=== PATIENT | female | born 1980 | race Caucasian/White ===

== ENCOUNTER → 2017-12-07 | Outpatient (CLI) | payer MEDICAID ==
--- NOTE | 2017-12-08 11:08 | MM ---
Reason for exam: screening (asymptomatic). Baseline mammogram. History: Took hormonal contraceptives beginning at age 15. Physical Findings: Nurse Summary: 1cm nodule in the right breast at 9 o'clock (nurse jose). MG 3D Screening Mammo W/Cad Bilateral CC and MLO view(s) were taken. The breast tissue is heterogeneously dense. This may lower the sensitivity of mammography. No significant new findings when compared with previous films. These results were verbally communicated with the patient and result sheet given to the patient on 12/07/17. ASSESSMENT: Incomplete: need additional imaging evaluation, BI-RAD 0 RECOMMENDATION: Ultrasound of the right breast. [facility] will attempt to contact patient to return for ultrasound.
--- NOTE | 2017-12-08 11:09 | USB ---
Reason for exam: additional evaluation requested from abnormal screening. History: Took hormonal contraceptives beginning at age 15. Physical Findings: Breast exam preformed at baseline screening. US Breast Workup Limited RT Right breast ultrasound demonstrates no cystic or solid lesion seen. These results were verbally communicated with the patient and result sheet given to the patient on 12/07/17. ASSESSMENT: Probably benign, BI-RAD 3 RECOMMENDATION: Follow-up diagnostic mammogram of the right breast in 6 months. Manage patient on a clinical basis.
== END | disposition home or self-care (01) ==
LOC: RADMAMWWP 10:51
PROVIDERS: ATTEND Obstetrics & Gynecology
DX: Z12.31 Encounter for screening mammogram for malignant neoplasm of breast (principal); R92.8 Other abnormal and inconclusive findings on diagnostic imaging of breast
CPT/HCPCS: 77063; 77067

== ENCOUNTER 2019-06-25 18:45 | Emergency (ER) | payer MEDICAID ==
[2019-06-25 18:52] VITALS: BP 135/78; PULSE 104; RESP 18; TEMP 97.7
[2019-06-25] MEDS ORDERED: methylPREDNISolone SOD SUCCI 125 MG/2 ML VIAL IV STA (19:09)
[2019-06-25] MEDS ORDERED: diphenhydrAMINE 50 MG/ML 1 ML VIAL IVP STA (19:09)
[2019-06-25] MEDS ORDERED: SODIUM CHLORIDE 0.9% 1,000 ML IV STA (19:09)
[2019-06-25] MEDS ORDERED: FAMOTIDINE 20 MG/2 ML VIAL IV STA (19:09)
[2019-06-25] MEDS ORDERED: SODIUM CHLORIDE 0.9% 500 ML 500 ML IV STA (19:09)
--- NOTE | 2019-06-25 19:22 | ED ---
Allergic Reaction HPI - General Chief complaint: Allergic Reaction Stated complaint: allergic reaction Time Seen by Provider: 06/25/19 19:04 Source: patient, RN notes reviewed Mode of arrival: ambulatory Limitations: no limitations - History of Present Illness Initial Comments: This is a 39-year-old female with a benign history who states she was stung by an insect of some sort prior to arrival she was stung in the posterior right shoulder she now complains of chest tightness and hives everywhere. She is complaining of pruritus. No trouble swallowing no wheezing no overt difficulty breathing over she does again complain of the chest tightness. No other complaints or modifying factors MD Complaint: allergic reaction, hives - Related Data Previous Rx's Medication Instructions Recorded EPINEPHrine [Epipen 2-Birght] 0.3 mg IM ONCE PRN #1 pack 06/25/19 Famotidine [Pepcid] 20 mg PO BID #10 tablet 06/25/19 methylPREDNISolone Dose Pack 4 mg PO DIRECTED #21 package 06/25/19 [Medrol Dose Pack] Allergies Allergy/AdvReac Type Severity Reaction Status Date / Time No Known Allergies Allergy Verified 06/25/19 20:05 Review of Systems ROS Statement: Those systems with pertinent positive or pertinent negative responses have been documented in the HPI. ROS Other: All systems not noted in ROS Statement are negative. Past Medical History Past Medical History: No Reported History History of Any Multi-Drug Resistant Organisms: None Reported Additional Past Surgical History / Comment(s): WISDOM TEETH EXTRACTION Past Psychological History: No Psychological Hx Reported Smoking Status: Never smoker Past Alcohol Use History: Occasional Past Drug Use History: None Reported General Exam - General Exam Comments Initial Comments: This is a well-developed well-nourished awake alert oriented 3 female Limitations: no limitations General appearance: alert, anxious, in distress Head exam: Present: atraumatic, normocephalic, normal inspection Eye exam: Present: normal appearance, PERRL, EOMI. Absent: scleral icterus, conjunctival injection, periorbital swelling ENT exam: Present: normal exam, mucous membranes moist Neck exam: Present: normal inspection. Absent: tenderness, meningismus, lymphadenopathy Respiratory exam: Present: normal lung sounds bilaterally. Absent: respiratory distress, wheezes, rales, rhonchi, stridor Cardiovascular Exam: Present: normal rhythm, tachycardia, normal heart sounds. Absent: systolic murmur, diastolic murmur, rubs, gallop, clicks GI/Abdominal exam: Present: soft, normal bowel sounds. Absent: distended, tenderness, guarding, rebound, rigid Extremities exam: Present: normal inspection, full ROM, normal capillary refill. Absent: tenderness, pedal edema, joint swelling, calf tenderness Neurological exam: Present: alert, oriented X3, CN II-XII intact Psychiatric exam: Present: normal affect, normal mood Skin exam: Present: warm, dry, intact, other (Patient does demonstrate evidence of hives and urticaria on the integument of the extremities and trunk. The most part the face is spared examination of the bite/sting site on the right posterior shoulder reveals no evidence of any open wound or foreign body.). Absent: normal color, rash Course Vital Signs 06/25/19 18:49 Temperature 97.7 F Pulse Rate 104 H Respiratory 18 Rate Blood Pressure 135/78 O2 Sat by Pulse 99 Oximetry - Reevaluation(s) Reevaluation #1: 06/25/19 20:30 Reevaluation the patient she is feeling improved the itching is disappeared her hives are improving. Medical Decision Making - Medical Decision Making At this time the patient is deemed to be in satisfactory condition for discharge. She'll be discharged with appropriate medication also she will be given a prescription for an EpiPen. She was cautioned about heat exposure and exacerbation of her condition. Disposition Clinical Impression: Allergic reaction to insect sting, Allergic reaction Disposition: HOME SELF-CARE Condition: Good Instructions (If sedation given, give patient instructions): Urticaria (ED), General Allergic Reaction (ED) Additional Instructions: Cold compresses, avoid heat, [id number] Benadryl every 6 hours 25 mg when necessary. Prescriptions have been sent to [facility] at [facility] Prescriptions: EPINEPHrine [Epipen 2-Bright] 0.3 mg IM ONCE PRN #1 pack PRN Reason: Anaphylaxis methylPREDNISolone Dose Pack [Medrol Dose Pack] 4 mg PO DIRECTED #21 package Famotidine [Pepcid] 20 mg PO BID #10 tablet Is patient prescribed a controlled substance at d/c from ED?: No Referrals: None,Stated [Primary Care Provider] - 1-2 days
== END 2019-06-25 20:55 | disposition home or self-care (01) ==
LOC: EC 18:45
DX: T63.481A Toxic effect of venom of other arthropod, accidental (unintentional), initial encounter (principal); R00.0 Tachycardia, unspecified
CPT/HCPCS: 99284; 96374; 96375 ×2; 96361 ×2; J1200; J2930

== ENCOUNTER → 2022-01-01 | Outpatient (CLI) | payer MEDICAID ==
--- NOTE | 2022-01-04 11:08 | MM ---
Reason for exam: screening (asymptomatic). Last mammogram was performed 4 years and 1 month ago. History: Took hormonal contraceptives beginning at age 15. Physical Findings: A clinical breast exam by your physician is recommended on an annual basis and results should be correlated with mammographic findings. MG 3D Screening Mammo W/Cad Bilateral CC, MLO, and XCCL view(s) were taken. Prior study comparison: December 07, 2017, bilateral MG 3d screening mammo w/cad. There are scattered fibroglandular densities. Asymmetric breast tissue in the right breast is stable. No significant changes when compared with prior studies. ASSESSMENT: Benign, BI-RAD 2 RECOMMENDATION: Routine screening mammogram of both breasts in 1 year.
== END | disposition home or self-care (01) ==
LOC: RADMAMWWP 08:03
PROVIDERS: ATTEND Obstetrics & Gynecology
DX: Z12.31 Encounter for screening mammogram for malignant neoplasm of breast (principal)
CPT/HCPCS: 77063; 77067

== ENCOUNTER → 2023-02-23 | Outpatient (CLI) | payer MEDICAID ==
[2023-02-23 10:58] LABS: HCT 38.7 % (37.2-46.3); HGB 12.4 g/dL (12.0-15.0); MCH 26.7 pg (27.0-32.0); MCV 83.2 fL (80.0-97.0); Mean Platelet Volume 9.2 fL (9.5-12.2); NRBC Per 100 WBC 0 /100 WBCS (0.0-0.0); Platelet Count 384 X 10*3/uL (140-440); RBC 4.65 X 10*6/uL (4.10-5.20); RDW 14.3 % (11.5-14.5); WBC 5.48 X 10*3/uL (4.50-10.00)
[2023-02-23 11:34] LABS: Chol/HDL Ratio 3.78 Ratio; LDL Cholesterol,Calculated 148.5 mg/dL (0.0-131.0); VLDL Calculation 19.22 mg/dL (5.00-40.00)
--- NOTE | 2023-02-24 07:04 | MM ---
Reason for Exam: Screening (asymptomatic). Last mammogram was performed 1 year(s) and 2 month(s) ago. Patient History: Menarche at age 10. First Full-Term at age 23. Patient has history of breast feeding. Hormonal Contraceptives, from age 15 until age 20. Last menstrual period: 02/10/2023 Risk Values: Daphne 5 year model risk: 0.7%. NCI Lifetime model risk: 9.6%. Prior Study Comparison: 12/07/2017 Bilateral Screening Mammogram, [facility]. 01/01/2022 Bilateral Screening Mammogram, [facility]. Tissue Density: There are scattered fibroglandular densities. Findings: Analyzed By CAD. There is no suspicious group of microcalcifications or new suspicious mass in either breast. Overall Assessment: Negative, BI-RAD 1 Management: Screening Mammogram of both breasts in 1 year. . Patient should continue monthly self-breast exams. A clinical breast exam by your physician is recommended on an annual basis. This exam should not preclude additional follow-up of suspicious palpable abnormalities. Note on Daphne scores and lifetime risk: 1. A Daphne score greater than 3% is considered moderate risk. If this is the case, consider specialist referral to assess eligibility for a risk reducing agent. 2. If overall lifetime risk for the development of breast cancer is 20% or higher, the patient may qualify for future screening with alternating mammogram and breast MRI. Electronically signed and approved by: Cecil Arnold M.D.
== END | disposition home or self-care (01) ==
LOC: RADMAMWWP 06:54
PROVIDERS: ATTEND Obstetrics & Gynecology
DX: Z12.31 Encounter for screening mammogram for malignant neoplasm of breast (principal); Z13.220 Encounter for screening for lipoid disorders; Z13.29 Encounter for screening for other suspected endocrine disorder; Z13.1 Encounter for screening for diabetes mellitus; N93.8 Other specified abnormal uterine and vaginal bleeding; R53.83 Other fatigue
CPT/HCPCS: 36415; 77063; 77067; 80061; 83036; 84439; 84443; 85027

== ENCOUNTER 2024-02-10 06:10 | Day surgery (SDC) | payer MEDICAID ==
[~2024-02-10 06:10] MED LIST: Pre Op ABX Message 1 EACH MISC MISCELLANE ONE
[2024-02-10] MEDS: LACTATED RINGERS 1,000 ML IV SCH (06:49)
[2024-02-10 06:57] VITALS: TEMP 97.8
[2024-02-10] MEDS ORDERED: HYDROmorphone 0.5 MG/0.5 ML SYRINGE IVP PRN (07:00)
[2024-02-10] MEDS ORDERED: MIDAZOLAM 2 MG/2 ML VIAL IV PRN (07:00)
[2024-02-10] MEDS: SCOPOLAMINE 1 MG/72 HR PATCH TRANSDERM ONE (07:08)
[2024-02-10] MEDS: ONDANSETRON 4 MG/2 ML VIAL IVP ONE (07:08)
[2024-02-10] MEDS: DEXAMETHASONE SOD PHOSPHATE 4 MG/ML 1 ML VIAL IV ONE (07:08)
[2024-02-10] MEDS ORDERED: KETOROLAC 15 MG/ML 1 ML VIAL ONE (07:22)
[2024-02-10] MEDS ORDERED: fentaNYL (PF) 50 MCG/ML 2 ML AMP ONE (07:22)
[2024-02-10] MEDS ORDERED: LIDOCAINE 1% INJ 10MG/ML (20 ML MDV) ONE (07:22)
[2024-02-10] MEDS ORDERED: PROPOFOL 10 MG/ML 20 ML VIAL IV ONE (07:22)
[2024-02-10] MEDS ORDERED: MIDAZOLAM 2 MG/2 ML VIAL ONE (07:22)
[2024-02-10] MEDS: ceFAZolin 1,000 MG in SODIUM CHLORIDE 0.9% 1,000 ML IRRIGATION ONE (07:27)
[2024-02-10] MEDS: BUPIVACAINE (PF) 0.25% 30 ML VIAL SQ ONE (07:40)
--- NOTE | 2024-02-10 07:57 | P.OP ---
Date of Procedure: 02/10/24 Preoperative Diagnosis: metatarsalgia right foot Postoperative Diagnosis: same Procedure(s) Performed: second metatarsal osteotomy right foot Implants: none Anesthesia: JAVIA Surgeon: Kip Keita Estimated Blood Loss (ml): 1 Pathology: none sent Condition: stable Disposition: PACU Description of Procedure: The patient was brought into the operative room and placed on table supine position. Timeout was taken to confirm correct patient identifiers, correct lateral view of surgery, and correct procedure. Once all staff in the room agreed with the timeout, the patient was placed under IV sedation anesthesia. A 15 mL 0.25% Marcaine was injected as a forefoot block. The right foot was prepped and draped usual manner. Utilizing fluoroscopy, metallic marker was used to myra the knot neck of the second metatarsal. Small incision was made over that area and bluntly dissected down to the metatarsal. An elevator was used to dissect the periosteum off the metatarsal neck. A 2.2 mm bur was then used to create an osteotomy through the neck of the metatarsal. The osteotomy was oriented from distal lateral to proximal medial. Once the osteotomy was completed the capital fragment was shifted approximately medially to correct the deformity and decompress the joint. Once fluoroscopy confirmed the correction of the metatarsal, the wound was thoroughly irrigated with normal saline. 3-0 nylon was used to close incision. Nonadherent gauze and dry sterile dressing applied to the right foot. The dressing was applied to hold the second digit laterally in a correct position. The patient tolerated above procedure and anesthesia well which recovery with vital signs stable
[2024-02-10 08:28] VITALS: BP 91/57; PULSE 66; RESP 16
== END 2024-02-10 08:53 | disposition home or self-care (01) ==
LOC: OR 06:10
PROVIDERS: ATTEND Podiatrist
DX: M77.41 Metatarsalgia, right foot (principal); M21.6X1 Other acquired deformities of right foot; M77.42 Metatarsalgia, left foot; M21.6X2 Other acquired deformities of left foot; F10.90 Alcohol use, unspecified, uncomplicated; Z79.899 Other long term (current) drug therapy; Z82.49 Family history of ischemic heart disease and other diseases of the circulatory system
CPT/HCPCS: 81025; 28308; J2250; J1100; J2405; J0690; J2001; J3010; J1885; J2704; J0665

== ENCOUNTER → 2024-07-06 | Outpatient (CLI) | payer MEDICAID ==
--- NOTE | 2024-07-06 08:38 | MM ---
Reason for Exam: Screening (asymptomatic). Last mammogram was performed 1 year(s) and 4 month(s) ago. Patient History: Menarche at age 10. First Full-Term at age 23. Patient has history of breast feeding. Hormonal Contraceptives, from age 15 until age 20. Risk Values: Daphne 5 year model risk: 0.8%. NCI Lifetime model risk: 9.4%. Prior Study Comparison: 12/07/2017 Bilateral Screening Mammogram, [facility]. 01/01/2022 Bilateral Screening Mammogram, [facility]. 02/23/2023 Bilateral MG 3D screening mammo w/cad, [facility]. Tissue Density: The breasts are heterogeneously dense, which may obscure small masses. Findings: Analyzed By CAD. There is no suspicious group of microcalcifications or new suspicious mass in either breast. Overall Assessment: Negative, BI-RAD 1 Management: Screening Mammogram of both breasts in 1 year. . Patient should continue monthly self-breast exams. A clinical breast exam by your physician is recommended on an annual basis. This exam should not preclude additional follow-up of suspicious palpable abnormalities. Note on Daphne scores and lifetime risk: 1. A Daphne score greater than 3% is considered moderate risk. If this is the case, consider specialist referral to assess eligibility for a risk reducing agent. 2. If overall lifetime risk for the development of breast cancer is 20% or higher, the patient may qualify for future screening with alternating mammogram and breast MRI. Electronically signed and approved by: Jayden Cristina M.D. Radiologis
== END | disposition home or self-care (01) ==
LOC: RADMAMWWP 07:25
PROVIDERS: ATTEND Obstetrics & Gynecology
DX: Z12.31 Encounter for screening mammogram for malignant neoplasm of breast
CPT/HCPCS: 77063; 77067

== ENCOUNTER → 2024-11-14 | Outpatient (CLI) | payer MEDICAID ==
[2024-11-14 15:13] LABS: HGB 12.4 g/dL (12.0-15.0); MCH 26.7 pg (27.0-32.0); Mean Platelet Volume 9.6 FL (9.5-12.2); NRBC Per 100 WBC 0 X 10*3/uL (0.00-0.01); Platelet Count 441 X 10*3/uL (140-440); RBC 4.65 X 10*6/uL (4.10-5.20); RDW 14.2 % (11.5-14.5); WBC 4.19 X 10*3/uL (4.50-10.00)
[2024-11-14 15:39] LABS: % Iron Saturation 20.05 (12.00-45.00); ALT 12 U/L (8-44); AST 15 U/L (13-35); Albumin 4.3 g/dL (3.8-4.9); Albumin/Globulin Ratio 1.72 Ratio (1.60-3.17); Alkaline Phosphatase 53 U/L (41-126); BUN/Creat Ratio 16.86 Ratio (12.00-20.00); Blood Urea Nitrogen 11.8 mg/dL (9.0-27.0); C Reactive Protein, High Sens 0.261 mg/L (0.000-3.000); Calcium 9.7 mg/dL (8.7-10.3); Carbon Dioxide 25.1 mmol/L (21.6-31.8); Chloride 104 mmol/L (96-109); Ferritin 27.2 ng/mL (10.0-291.0); Globulin 2.5 g/dL (1.6-3.3); Glucose 83 mg/dL (70-110); Iron 89 UG/DL (50-170); LDL Cholesterol,Calculated 147.3 mg/dL (0.0-131.0); Potassium 4.4 mmol/L (3.5-5.5); Sodium 138 mmol/L (135-145); Total Bilirubin 0.4 mg/dL (0.3-1.2); Total Iron Binding Capacity 444 UG/DL (228-460); Total Protein 6.8 g/dL (6.2-8.2); VLDL Calculation 12.72 mg/dL (5.00-40.00)
== END | disposition home or self-care (01) ==
LOC: LABWHC1 08:32
PROVIDERS: ATTEND Family Medicine
DX: Z13.1 Encounter for screening for diabetes mellitus (principal); N92.0 Excessive and frequent menstruation with regular cycle; Z82.49 Family history of ischemic heart disease and other diseases of the circulatory system
CPT/HCPCS: 36415; 80053; 80061; 82728; 83036; 83540; 83550; 85027; 86141

== ENCOUNTER → 2025-01-25 | Day surgery (SDC) | payer MEDICAID ==
[2025-01-23 09:48] VITALS: BMI 24.7
[~2025-01-25] MED LIST changes: +LIDOCAINE 1% (10MG/ML) FOR IV START INTRADERMA PRN; +PROPOFOL 10 MG/ML 20 ML VIAL IV ONE; -Pre Op ABX Message 1 EACH MISC MISCELLANE ONE
[2025-01-25] MEDS: IV FLUID CONTINUATION 1,000 ML IV ONE (11:53)
[2025-01-25 12:12] VITALS: RESP 16; TEMP 97.3
[2025-01-25] MEDS: LACTATED RINGERS 1,000 ML IV SCH (12:19)
[2025-01-25] MEDS: ONDANSETRON 4 MG/2 ML VIAL IVP STA (12:20)
--- NOTE | 2025-01-25 13:05 | P.PCN ---
Date of Procedure: 01/25/25 Procedure(s) Performed: BRIEF HISTORY: Patient is a 44-year-old pleasant white female scheduled for an elective colonoscopy as a part of screening for colon cancer. Her maternal grandfather and paternal grandmother both were diagnosed with colon cancer in the 60s and 70s respectively. PROCEDURE PERFORMED: Colonoscopy. PREOPERATIVE DIAGNOSIS: Screening for colon cancer and family history of colon cancer. IV sedation per Anesthesia. PROCEDURE: After informed consent was obtained, the patient, was brought into the endoscopy unit. IV sedation was administered by Anesthesia under continuous monitoring. Digital rectal examination was normal. Initially the Olympus CF-160 flexible video colonoscope was then inserted in the rectum, gradually advanced into the cecum without any difficulty. Careful examination was performed as the scope was gradually being withdrawn. Ileocecal valve and the appendiceal orifice were visualized and appeared normal. Prep was excellent. Mucosa of the cecum, ascending colon, transverse colon, descending colon, sigmoid colon, and rectum appeared normal. Retroflexion was performed in the rectum and no lesions were seen. The patient tolerated the procedure well. IMPRESSION: Normal-appearing colon from rectum to cecum with no evidence of colorectal neoplasia. RECOMMENDATIONS: Findings of this examination were discussed with the patient as well as her family.. She was advised to have repeat screening colonoscopy in 5 years because of the strong family history of colon cancer
[2025-01-25 14:04] VITALS: BP 117/78; PULSE 70
== END ==
LOC: ORWHC2ENDO 10:11
PROVIDERS: ATTEND Internal Medicine Gastroenterology
DX: Z12.11 Encounter for screening for malignant neoplasm of colon (principal); Z91.89 Other specified personal risk factors, not elsewhere classified; Z80.0 Family history of malignant neoplasm of digestive organs; Z91.030 Bee allergy status
CPT/HCPCS: 81025; 45378; J2405; J2704